=== PATIENT | female | born 1955 | race Caucasian/White ===

== ENCOUNTER 2016-03-26 09:49 | Day surgery (SDC) | payer BC ==
[2016-03-26] MEDS ORDERED: LACTATED RINGERS 1,000 ML IV ONE (10:00)
[2016-03-26] MEDS ORDERED: MIDAZOLAM 2 MG/2 ML VIAL IVP ONE (11:20)
[2016-03-26] MEDS ORDERED: fentaNYL 250 MCG/5 ML VIAL IVP ONE (11:20)
== END 2016-03-26 09:50 | disposition home or self-care (01) ==
PROC: 0DBN8ZZ Excision of Sigmoid Colon, Via Natural or Artificial Opening Endoscopic (ICD-10-PCS; 2016-03-26)
PROC: 0DBP8ZX Excision of Rectum, Via Natural or Artificial Opening Endoscopic, Diagnostic (ICD-10-PCS; 2016-03-26)
PROC: 0DBH8ZZ Excision of Cecum, Via Natural or Artificial Opening Endoscopic (ICD-10-PCS; principal; 2016-03-26 11:00)
DX: Z12.11 Encounter for screening for malignant neoplasm of colon (principal); D12.0 Benign neoplasm of cecum; D12.5 Benign neoplasm of sigmoid colon; K62.6 Ulcer of anus and rectum; K60.2 Anal fissure, unspecified
CPT/HCPCS: 45380; 45385; J7120

== ENCOUNTER 2016-04-02 16:40 | Outpatient (CLI) | payer BC | END 2016-04-02 16:41 | disposition home or self-care (01) | DX: N39.0 Urinary tract infection, site not specified (principal) ==

== ENCOUNTER 2016-04-13 09:50 | Outpatient (CLI) | payer BC | END 2016-04-13 09:51 | disposition home or self-care (01) | DX: N39.0 Urinary tract infection, site not specified (principal) ==

== ENCOUNTER 2016-07-12 09:20 | Outpatient (CLI) | payer BC | END 2016-07-12 09:21 | disposition home or self-care (01) | DX: N76.0 Acute vaginitis (principal) ==

== ENCOUNTER 2016-07-12 10:00 | Outpatient (CLI) | payer BC | END 2016-07-12 10:01 | disposition home or self-care (01) | LOC: LAB.R 10:00 | PROVIDERS: ATTEND Physician Assistant Medical | DX: R30.0 Dysuria (principal); N76.0 Acute vaginitis | CPT/HCPCS: 81599; 87077; 87086; 87480; 87510; 87660 ==

== ENCOUNTER 2016-08-06 08:00 | Outpatient (CLI) | payer BC | END 2016-08-06 23:59 | disposition home or self-care (01) | LOC: LAB.R 08:00 | PROVIDERS: ATTEND Family Medicine | DX: N39.0 Urinary tract infection, site not specified (principal) | CPT/HCPCS: 87077; 87086 ==

== ENCOUNTER 2016-10-23 10:11 | Outpatient (CLI) | payer BC ==
--- NOTE | 2016-10-24 14:38 | Mammography Report ---
DIGITAL SCREENING MAMMOGRAM: 10/23/2016 CLINICAL INDICATION: A 61-year-old nulliparous patient with personal history of right breast cancer, status post lumpectomy and radiation therapy, for screening. COMPARISON: 09/2015, 06/2015, 06/2014, 06/2013, 06/2012, 06/2011, 12/2010, 05/2010, 07/2009, 04/2009. TECHNIQUE: Routine CC and MLO projections were obtained of the breasts. FINDINGS: The breasts again demonstrate heterogeneously dense fibroglandular parenchyma bilaterally. Postoperative and posttreatment changes in the right upper central breast are stable. A few coarse, typically benign calcifications are present. No suspicious masses, clustered microcalcifications, or regions of architectural distortion are identified. IMPRESSION: BENIGN FINDINGS. RECOMMENDATION: ROUTINE ANNUAL SCREENING UNLESS OTHERWISE CLINICALLY INDICATED. BIRADS CATEGORY 2-BENIGN FINDINGS. STANDARD QUALIFYING STATEMENTS 1. This examination was reviewed with the aid of Computer-Aided Detection (CAD). 2. A negative or benign imaging report should not delay biopsy if clinically suspicious findings are present. Consider surgical consultation if warranted. More than 5% of cancers are not identified by i maging. 3. Dense breasts may obscure an underlying neoplasm. JOB #: [id number] EXT JOB #:[id number]
== END 2016-10-23 10:12 | disposition home or self-care (01) ==
LOC: DI.N 10:11
PROVIDERS: ATTEND Physician Assistant Medical
DX: Z12.31 Encounter for screening mammogram for malignant neoplasm of breast (principal); D05.90 Unspecified type of carcinoma in situ of unspecified breast
CPT/HCPCS: 77067

== ENCOUNTER 2017-01-30 00:17 | Inpatient (IN) | payer BC ==
[2017-01-30] MEDS ORDERED: ACETAMINOPHEN 325 MG TABLET PO STA (00:28)
[2017-01-30] MEDS ORDERED: SODIUM CHLORIDE 0.9% 1,000 ML IV ONE ×2 (00:28→02:54)
[2017-01-30] MEDS ORDERED: ACETAMINOPHEN 325 MG TABLET PO ONE (00:44)
[2017-01-30 00:59] LABS: BASOPHILS % (AUTO) 0.1 %; EOSINOPHILS % (AUTO) 0.2 %; HGB - HEMOGLOBIN 12.7 g/dL (12.0-16.0); LYMPHOCYTES # (AUTO) 0.3 10^3/uL (1.5-3.5); LYMPHOCYTES % (AUTO) 4.1 %; MEAN CORPUSCULAR HEMOGLOBIN 31.6 pg (27.0-31.0); MEAN CORPUSCULAR HGB CONC 34.5 g/dL (32.0-36.0); MEAN CORPUSCULAR VOLUME 91.8 fL (81.0-99.0); MEAN PLATELET VOLUME 7.9 fL (7.9-10.8); MONOCYTES # (AUTO) 0.2 10^3/uL (0.0-1.0); NEUTROPHILS # (AUTO) 6.6 10^3/uL (1.5-6.6); NEUTROPHILS % (AUTO) 92.6 %; PLT - PLATELET COUNT 98 10^3/uL (130-450); RED BLOOD COUNT 4.01 10^6/uL (4.20-5.40); WHITE BLOOD COUNT 7.1 x10^3/uL (4.8-10.8)
--- NOTE | 2017-01-30 01:02 | ED Physician Documentation ---
History of Present Illness - Stated complaint Stated Complaint: FEVER - Chief complaint Chief Complaint: Fever - History obtained from History obtained from: Patient, Family - History of Present Illness Timing: Yesterday - Additonal information Additional information: Patient is a 61 year old female with no significant past medical history who is presenting to the emergency department for fever and rash. According to patient and family over the last couple of days the patient has had fevers and shakes at night. During the day the patient states that she feels ok. patient states that she developed a new rash over the last couple of days. Patient denies any sick contacts but does state that they recently traveled to [place]. Patient states that she had a mild cough, but denied any other focal source or cause of her infection. Review of Systems Constitutional: reports: Fever, Chills, Sweats. denies: Fatigue, Weight Loss Eyes: denies: Decreased vision Ears: denies: Ear pain, Drainage/discharge Nose: denies: Rhinorrhea / runny nose, Congestion, Sinus pressure / pain Throat: denies: Sore throat Cardiac: denies: Chest pain / pressure, Palpitations Respiratory: reports: Cough. 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 HEENT: Cataracts - Present Medications Home Medications: Ambulatory Orders Medication Instructions Recorded Confirmed Calcium Citrate/Vitamin D3 1 each PO DAILY 03/26/16 01/30/17 [Calcium Citrate +Vit D3 Tablet] Cholecalciferol (Vitamin D3) 1 cap PO DAILY 03/26/16 01/30/17 [Vitamin D3] Divalproex Sodium [Depakote] 250 mg PO TID 03/26/16 01/30/17 Docusate Sodium 250Mg Capsule 250 mg PO PRN PRN 03/26/16 01/30/17 [Colace 250Mg Capsule] Levothyroxine [Synthroid] 100 mcg PO QDAC 03/26/16 01/30/17 Multivit with Calcium,Iron,Min 1 cap PO DAILY 03/26/16 01/30/17 [Multiple Vitamins For Women] Vit C/E/Zinc/Lutein/Zeaxanthin 500 cap PO DAILY 03/26/16 01/30/17 [Ocuvite Eye Health Gummies] Estrogens, Conjugated Cream 1 applic TOP QPM 01/30/17 01/30/17 [Premarin Cream] Fluticasone [Flonase] 1 spray TRAVIS DAILY PRN 01/30/17 01/30/17 Polyethylene Glycol 3350 [Miralax] 17 gm PO DAILY PRN 01/30/17 01/30/17 Psyllium Husk [Metamucil] 660 gm PO DAILY PRN 01/30/17 01/30/17 Zolpidem Tartrate [Ambien] 1 tab PO QPM PRN 01/30/17 01/30/17 hydrOXYzine pamoate [Hydroxyzine 1 - 2 cap PO QID PRN 01/30/17 01/30/17 Pamoate] lamoTRIgine [LaMICtal] 75 mg PO TID 01/30/17 01/30/17 - Allergies Allergies/Adverse Reactions: Allergies Allergy/AdvReac Type Severity Reaction Status Date / Time adhesive tape AdvReac Rash Verified 01/30/17 01:01 Sulfa (Sulfonamide AdvReac Anxiety Verified 01/30/17 01:01 Antibiotics) - Social History Does the pt smoke?: No Smoking Status: Never smoker Does the pt drink ETOH?: Yes Does the pt have substance abuse?: No - Immunizations Immunizations are current?: Yes - POLST Patient has POLST: No PD ED PE NORMAL - Vitals Vital signs reviewed: Yes - General General: Alert and oriented X 3 - HEENT HEENT: Atraumatic, PERRL, Pharynx benign - Neck Neck: Supple, no meningeal sign, No adenopathy - Abdomen Abdomen: Soft, Non tender, Non distended - Extremities Extremities: Normal ROM s pain, No edema, No calf tenderness / cord - Neuro Neuro: Alert and oriented X 3, No motor deficit, No sensory deficit, Normal speech Eye Opening: Spontaneous Motor: Obeys Commands Verbal: Oriented GCS Score: 15 - Psych Psych: Normal mood PD ED PE EXPANDED - HEENT HEENT: Dry mucous membranes - Cardiac Cardiac: Tachy - Derm Derm: Petecchiae (bilateral lower extremities) Results - Vitals Vitals: Vital Signs - 24 hr 01/30/17 01/30/17 01/30/17 00:21 00:50 01:17 Temperature 39.8 C H 38.6 C H 38.3 C H Heart Rate 120 H 115 H 123 H Respiratory 16 22 23 Rate Blood Pressure 139/56 H 126/65 107/60 O2 Saturation 97 98 96 01/30/17 02:24 Temperature 37.1 C Heart Rate 108 H Respiratory 22 Rate Blood Pressure 103/52 L O2 Saturation 97 Oxygen O2 Source Room air - Labs Labs: Laboratory Tests 01/30/17 01/30/17 01/30/17 00:45 00:45 00:45 WBC 7.1 RBC 4.01 L Hgb 12.7 Hct 36.8 L MCV 91.8 MCH 31.6 H MCHC 34.5 RDW 13.0 Plt Count 98 L MPV 7.9 Neut # 6.6 Lymph # 0.3 L Beaver # 0.2 Eos # 0.0 Baso # 0.0 Absolute Nucleated RBC 0.00 Nucleated RBC % 0.0 PT 12.1 INR 1.1 APTT 26.3 Sodium 137 Potassium 3.4 L Chloride 99 L Carbon Dioxide 28 Anion Gap 10.0 BUN 21 H Creatinine 1.0 Estimated GFR (MDRD) 56 L Glucose 125 H Lactic Acid Calcium 8.6 Total Bilirubin 0.6 AST 20 ALT 14 Alkaline Phosphatase 42 Total Protein 6.7 Albumin 3.5 Globulin 3.2 Albumin/Globulin Ratio 1.1 Lipase 20 L TSH Urine Color Urine Clarity Urine pH Ur Specific [place] Urine Protein Urine Glucose (UA) Urine Ketones Urine Occult Blood Urine Nitrite Urine Bilirubin Urine Urobilinogen Ur Leukocyte Esterase Urine RBC Urine WBC Ur Squamous Epith Cells Urine Bacteria Ur Microscopic Review Urine Culture Comments Influenza A (Rapid) Influenza B (Rapid) Influenza Types A,B Ag 01/30/17 01/30/17 01/30/17 00:45 00:45 00:45 WBC RBC Hgb Hct MCV MCH MCHC RDW Plt Count MPV Neut # Lymph # [place] # Eos # Baso # Absolute Nucleated RBC Nucleated RBC % PT INR APTT Sodium Potassium Chloride Carbon Dioxide Anion Gap BUN Creatinine Estimated GFR (MDRD) Glucose Lactic Acid 0.6 Calcium Total Bilirubin AST ALT Alkaline Phosphatase Total Protein Albumin Globulin Albumin/Globulin Ratio Lipase TSH 0.16 L Urine Color Urine Clarity Urine pH Ur Specific [place] Urine Protein Urine Glucose (UA) Urine Ketones Urine Occult Blood Urine Nitrite Urine Bilirubin Urine Urobilinogen Ur Leukocyte Esterase Urine RBC Urine WBC Ur Squamous Epith Cells Urine Bacteria Ur Microscopic Review Urine Culture Comments Influenza A (Rapid) Negative Influenza B (Rapid) Negative Influenza Types A,B Ag - 01/30/17 01:27 WBC RBC Hgb Hct MCV MCH MCHC RDW Plt Count MPV Neut # Lymph # [place] # Eos # Baso # Absolute Nucleated RBC Nucleated RBC % PT INR APTT Sodium Potassium Chloride Carbon Dioxide Anion Gap BUN Creatinine Estimated GFR (MDRD) Glucose Lactic Acid Calcium Total Bilirubin AST ALT Alkaline Phosphatase Total Protein Albumin Globulin Albumin/Globulin Ratio Lipase TSH Urine Color YELLOW Urine Clarity HAZY Urine pH 7.5 Ur Specific [place] 1.015 Urine Protein 30 H Urine Glucose (UA) NEGATIVE Urine Ketones NEGATIVE Urine Occult Blood MODERATE H Urine Nitrite NEGATIVE Urine Bilirubin NEGATIVE Urine Urobilinogen 0.2 (NORMAL) Ur Leukocyte Esterase SMALL H Urine RBC 11-25 H Urine WBC 6-10 H Ur Squamous Epith Cells RARE Squamous Urine Bacteria Rare Ur Microscopic Review INDICATED Urine Culture Comments INDICATED Influenza A (Rapid) Influenza B (Rapid) Influenza Types A,B Ag - Rads (name of study) chest Radiology: Final report received (normal chest x=ray) PD MEDICAL DECISION MAKING - ED course Complexity details: reviewed old records, reviewed results, re-evaluated patient , considered differential, d/w patient, d/w family, 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 IV access was gained and labs were drawn. Patient was treated with fluid bolus and tylenol. blood cultures were drawn. Patient's fever responded well to the tylenol and IV fluids. the tachycardia improved. When patient's labs came back she was found to have platelets of 98. patient's only other labs were from 2016 and her platelets at that time were normal at 177. Due to the positive SIRS, low platelets and petechiae it was decided to admit the patient. the case was discussed with the hospitalist who agreed and the patient was admitted for further evaluation and care. Departure - Departure Disposition: ED Place in Observation Clinical Impression: Fever, Thrombocytopenia Condition: Stable
[2017-01-30 01:07] LABS: INR 1.1 (0.8-1.2); PT - PROTHROMBIN TIME 12.1 secs (9.9-12.6)
[2017-01-30 01:09] LABS: ALBUMIN 3.5 g/dL (3.2-5.5); ALBUMIN/GLOBULIN RATIO 1.1 (1.0-2.2); BILIRUBIN,TOTAL 0.6 mg/dL (0.2-1.0); CALCIUM 8.6 mg/dL (8.5-10.3); TOTAL PROTEIN 6.7 g/dL (6.7-8.2)
[2017-01-30 01:37] LABS: BILIRUBIN,URINE NEGATIVE (NEGATIVE); GLUCOSE, URINE (UA) NEGATIVE (NEGATIVE); KETONES,URINE (UA) NEGATIVE (NEGATIVE); LEUKOCYTE ESTERASE, URINE SMALL (NEGATIVE); NITRITE,URINE NEGATIVE (NEGATIVE); OCCULT BLOOD,URINE MODERATE (NEGATIVE); PH,URINE 7.5 PH (5.0-7.5); PROTEIN,URINE 30 mg/dL (NEGATIVE); UROBILINOGEN,URINE 0.2 (NORMAL) E.U./dL (NORMAL)
[2017-01-30 01:57] LABS: CLARITY,URINE HAZY (CLEAR)
[2017-01-30 01:58] LABS: BACTERIA,URINE Rare /HPF (None Seen); SQUAMOUS EPITHELIAL CELL,UR RARE Squamous (<= Few)
--- NOTE | 2017-01-30 02:03 | XRAY Preliminary Report ---
Exam: XR CHEST 1 VIEW IMPRESSION: 1. No acute abnormality seen in the chest. [facility] SITE ID: [id number]
--- NOTE | 2017-01-30 02:05 | XRAY Report ---
EXAM: CHEST RADIOGRAPHY EXAM DATE: 01/30/2017 01:36 AM. CLINICAL HISTORY: Fever, sepsis. COMPARISON: None. TECHNIQUE: 1 view. FINDINGS: Lungs/Pleura: No alveolar consolidation or pleural effusion seen. No pneumothorax. Mediastinum: Within exam limitations, the cardiomediastinal contour is normal. Other: None. IMPRESSION: 1. No acute abnormality seen in the chest. [facility] Referring Provider Line: [phone] SITE ID: [id number]
[2017-01-30] MEDS ORDERED: IOPAMIDOL-300 100 ML VIAL ONE (02:45)
--- NOTE | 2017-01-30 02:58 | HISTORY & PHYSICAL EXAMINATION ---
Chief Complaint - Chief Complaint Chief Complaint: rash to legs, fevers, chills History of Present Illness - Admitted From Admitted From:: ED - History Obtained From Records Reviewed: yes History obtained from: patient Exam Limitations: none - History of Present Illness HPI Comment/Other: This is a pleasant 61 y/o with PMHx of colon polyps, breast CA in situ in 2009 on lamictal by psychiatry, hyperthyroidism was in [place] approximately a week as a subsequently developed a MP rash with "pin-point" lesion scattered throughout lower extremities. Patient also notes fevers, and was tachycardic in ED. Denies nausea, emesis, /GI symptoms, no chest pain, SOB, cough, Flu swab, UA and LA were unremarkable in ED. CXR did show some mediastinal abnormality secondary to rotation? Unclear. Platelets were low at 98K wit no bleeding, and INR 1.1, cr 1.0. WBC normal. After receiving 1 liter fluid bolus and tylenol fever improved and rachy went from 120>108 in ED. Patient was told by Psychiatrist of potential side effects of Lamictal to include MP rash secondary to sun exposure when taking Lamictal. History - Past Medical History Cardiovascular: denies: Congestive heart failure, Hypertension, Coronary artery disease, Atrial flutter, Atrial fibrillation Respiratory: reports: None. denies: Asthma, COPD, Emphysema, Pneumonia Neuro: reports: None Endocrine/Autoimmune: reports: None, HyPOthyroidism GI: reports: Colon polyps. 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 Cardiovascular: denies: CABG, Coronary stent, Valve replacement, Pacemaker, AICD , Cardiac catheterization HEENT: reports: Cataracts - Family & Social History Family History: Other family: CAD (denies ), Cancer (denies), CVA/TIA (denies) - POLST Patient has POLST: No Meds/Allgy - Home Medications Home Medications: Ambulatory Orders Medication Instructions Recorded Confirmed Calcium Citrate/Vitamin D3 1 each PO DAILY 03/26/16 01/30/17 [Calcium Citrate +Vit D3 Tablet] Cholecalciferol (Vitamin D3) 1 cap PO DAILY 03/26/16 01/30/17 [Vitamin D3] Divalproex Sodium [Depakote] 250 mg PO TID 03/26/16 01/30/17 Docusate Sodium 250Mg Capsule 250 mg PO PRN PRN 03/26/16 01/30/17 [Colace 250Mg Capsule] Levothyroxine [Synthroid] 100 mcg PO QDAC 03/26/16 01/30/17 Multivit with Calcium,Iron,Min 1 cap PO DAILY 03/26/16 01/30/17 [Multiple Vitamins For Women] Vit C/E/Zinc/Lutein/Zeaxanthin 500 cap PO DAILY 03/26/16 01/30/17 [[facility]] Estrogens, Conjugated Cream 1 applic TOP QPM 01/30/17 01/30/17 [Premarin Cream] Fluticasone [Flonase] 1 spray TRAVIS DAILY PRN 01/30/17 01/30/17 Polyethylene Glycol 3350 [Miralax] 17 gm PO DAILY PRN 01/30/17 01/30/17 Psyllium Husk [Metamucil] 660 gm PO DAILY PRN 01/30/17 01/30/17 Zolpidem Tartrate [Ambien] 1 tab PO QPM PRN 01/30/17 01/30/17 hydrOXYzine pamoate [Hydroxyzine 1 - 2 cap PO QID PRN 01/30/17 01/30/17 Pamoate] lamoTRIgine [LaMICtal] 75 mg PO TID 01/30/17 01/30/17 - Allergies Allergies/Adverse Reactions: Allergies Allergy/AdvReac Type Severity Reaction Status Date / Time adhesive tape AdvReac Rash Verified 01/30/17 01:01 Sulfa (Sulfonamide AdvReac Anxiety Verified 01/30/17 01:01 Antibiotics) Review of Systems - Constitutional Constitutional: reports: Fever, Chills. denies: Fatigue, Malaise, Weakness, Poor appetite, Night sweats, Weight gain - Eyes Eyes: denies: Pain - Ears, Nose & Throat Ears, Nose & Throat: denies: Vertigo - Cardiovascular Cariovascular: denies: Irregular heart rate, Palpitations, Syncope - Respiratory Respiratory: denies: Cough, Sputum production, Hemoptysis - Gastrointestinal Gastrointestinal: denies: Abdominal pain, Rectal bleeding, Black stools, Bloody stools, Reflux/heartburn - Genitourinary Genitourinary: denies: Dysuria - Musculoskeletal Musculoskeletal: denies: Muscle pain, Muscle aches - Integumentary Integumentary: reports: Rash, Lesions. denies: Pruritis - Neurological Neurological: denies: General weakness - Psychiatric Psychiatric: denies: Hallucinations - Endocrine Endocrine: denies: Polyuria - Hematologic/Lymphatic Hematologic/Lymphatic: reports: Petechiae. denies: Blood clots, Lymphadenopathy , Bleeding tendencies, Recurrent infections Exam - Vital Signs Vital Signs: Vital Signs x48h Temp Pulse Resp BP Pulse Ox 01/30/17 02:24 37.1 C 108 H 22 103/52 L 97 01/30/17 01:17 38.3 C H 123 H 23 107/60 96 01/30/17 00:50 38.6 C H 115 H 22 126/65 98 01/30/17 00:21 39.8 C H 120 H 16 139/56 H 97 - Physical Exam General Appearance: positive: No acute distress Eyes Bilateral: positive: Normal inspection, PERRL, EOMI ENT: negative: Pharyngeal erythema, Oral lesions Neck: positive: Nml inspection, Thyroid nml, No JVD, Trachea midline. negative : Thyromegaly, Lymphadenopathy (R), Lymphadenopathy (L) Respiratory: positive: Chest non-tender, No respiratory distress Cardiovascular: positive: Regular rate & rhythm, No murmur, No gallop. negative : Irregularly irregular, Systolic murmur, Gallop/S4 Peripheral Pulses: positive: 2+ Abdomen: positive: Non-tender, No organomegaly, Nml bowel sounds, No distention Back: negative: CVA tenderness (R), CVA tenderness (L) Skin: positive: Skin rash (petechial rash scattered throughout lower extremities with no bullae, blisters, necrotic lesions) Extremities: negative: Non-tender, No pedal edema, Calf tenderness Neurologic/Psychiatric: positive: Oriented x3 Conclusion/Plan - Problem List (1) Hyperthyroidism Conclusion/Plan: patient with hx hypothyroidism. Would obtain a free t3/t4. Would clarify dosing on levothyroxine. Subclinical hyperthyroidism maybe contributing with her tachy and fevers? DDx: Uma's or viral thyroditis (2) Petechial rash Conclusion/Plan: Unclear of etiology however would query on an infectious source vs malignancy or iatrogenic i.e lamotrigine with sun exposure cause as the timeline does fit with patient in sun-exposed [place] during the time of symptoms. Fevers and other side effects such as thrombocytopenia may explain this as well. Would hold Lamictal for now. Obtain a peripheral smear, EBV IgM, Monospot, HIV ( unlikely) follow blood cultures to r/o bacteremia, flu was negative as well as LA level and UA. Consider bone marrow biopsy as definitive diagnostic if other labs or imaging are unequivocal. (3) SIRS (systemic inflammatory response syndrome) Conclusion/Plan: Secondary to infectious vs iatrogenic cause i.e Lamotrigine side effect. Obtain a Lamotrigine level. CT chest w/ and w/o IV contrast to eval for abnormal mediastianal shadowing on CXR. Infectious work up. Metabolic work up. (4) Tachycardia Conclusion/Plan: IVF's, sec to infectious vs iatrogenic source. Treat supportively. (5) Fever Conclusion/Plan: Tylenol prn. Blood cultures to follow. Qualifiers: Fever type: drug-induced Qualified Code(s): R50.2 - Drug induced fever (6) Thrombocytopenia Conclusion/Plan: Likely secondary to Lamotrigine vs and infectious source. See above for plan on SIRS. Would follow platelet trending. Avoid heparin, ASA for now. Lamotrigine level to follow. - Lab Results Fish Bones: 01/30/17 00:45 01/30/17 00:45 - Diagnostic Imaging Results Diagnostic Imaging Results: positive: Final report reviewed, Read independently - EKG Results EKG Interpreted Independently: Yes - Other Other Results/Comments: DVT/GI ppx Place on SCD's and h2 nga. Issues/Core Measures - Anticipated LOS Anticipated Stay Length: 2 or more midnights - DVT/VTE - Prophylaxis VTE/DVT Device ordered at admit?: Yes VTE/DVT Prophylaxis med ordered at admit?: No Not Ordered - Medical Reason: Contraindicated - Stroke - Rehab Assessment Rehab services assessment to be ordered?: No - AMI - Statin at Admit Aspirin Prescribed on Admit: No Not Ordered - Medical Reason: Complication (thrombocytopenia)
[2017-01-30] MEDS ORDERED: IOPAMIDOL-300 100 ML VIAL IVP ONE ×2 (03:11→03:19)
[2017-01-30] MEDS ORDERED: ZOLPIDEM 5 MG TABLET PO PRN (03:18)
[2017-01-30] MEDS ORDERED: ONDANSETRON ODT 4 MG TABLET TL PRN (03:18)
[2017-01-30] MEDS ORDERED: HYDROcod/ACETAM 5/325 MG TABLET PO PRN (03:18)
[2017-01-30] MEDS ORDERED: ACETAMINOPHEN 325 MG TABLET PO PRN (03:18)
--- NOTE | 2017-01-30 03:32 | CT Preliminary Report ---
Exam: CT CHEST W/ IMPRESSION: 1. No acute abnormality seen in the chest. 2. Heterogeneous decreased enhancement in the visualized portion of the right kidney with perinephric stranding. Correlate for the possibility of pyelonephritis. [facility] SITE ID: [id number]
--- NOTE | 2017-01-30 03:34 | CT Report ---
EXAM: CT CHEST EXAM DATE: 01/30/2017 03:20 AM. CLINICAL HISTORY: Fever. Breast cancer. COMPARISONS: None. TECHNIQUE: Routine helical CT imaging was performed through the chest. IV contrast: Nonionic. Reconst ructions: Coronal and sagittal. In accordance with CT protocol optimization, one or more of the following dose reduction techniques w ere utilized for this exam: automated exposure control, adjustment of mA and/or KV based on patient s ize, or use of iterative reconstructive technique. FINDINGS: Lungs/Pleura: Mild bibasilar atelectasis. Probable mild radiation fibrosis in the right upper lobe. N o yusuf alveolar consolidation seen. No pleural effusion. No pneumothorax. Mediastinum: Heart size is normal. No lymphadenopathy. Bones: Degenerative changes in the spine. Mild scoliosis. No aggressive lytic or blastic lesions iden tified. Visualized Abdomen: Fatty liver. Visualized portion of the right kidney shows heterogeneous enhanceme nt with perinephric stranding, possibly due to pyelonephritis. Other: Postoperative changes in the right breast. IMPRESSION: 1. No acute abnormality seen in the chest. 2. Heterogeneous decreased enhancement in the visualized portion of the right kidney with perinephric stranding. Correlate for the possibility of pyelonephritis. [facility] Referring Provider Line: [phone] SITE ID: [id number]
[2017-01-30] MEDS ORDERED: LACTATED RINGERS 1,000 ML IV SCH (04:00)
[2017-01-30] MEDS: cefTRIAXone 1 GM in SODIUM CHLORIDE 0.9% MINIBAG 100 ML IV SCH (05:33)
[2017-01-30] MEDS: SODIUM CHLORIDE FLUSH 0.9% 10 ML SYRINGE IVP SCH ×3 (05:34→20:13)
[2017-01-30] MEDS: SODIUM CHLORIDE FLUSH 0.9% 10 ML SYRINGE IVP PRN (06:21)
[2017-01-30] MEDS: LACTATED RINGERS 1,000 ML IV SCH ×3 (08:09→20:12)
[2017-01-30] MEDS ORDERED: POLYETHYLENE GLYCOL 3350 17 GM PACKET PO SCH (09:00)
[2017-01-30] MEDS: FAMOTIDINE 20 MG TABLET PO SCH (09:16)
--- NOTE | 2017-01-30 16:13 | PROVIDER PROGRESS NOTE ---
Hospitalist Cross-cover Note - Cross-Cover Note Cross-Cover Note: The patient reports having a normal plt count of 151 just 1 mo ago. I have called Pt's psychiatrist Dr Padmini Hoffmann and left a message, to discuss the combination meds of Depakote and Lamictal and her thrombocytopenia. Her Synthroid will be restarted tomorrow at a lower dose. This afternoon Pt's blood cultures both became pos for GN Bacteria. I will move the Pt to inpatient status for bacteremia treatment. The patient was updated with the plan.
[2017-01-31] MEDS: LACTATED RINGERS 1,000 ML IV SCH ×4 (02:34→23:54)
[2017-01-31] MEDS: SODIUM CHLORIDE FLUSH 0.9% 10 ML SYRINGE IVP SCH ×3 (05:17→20:56)
[2017-01-31 06:01] LABS: BASOPHILS % (AUTO) 0.3 %; EOSINOPHILS % (AUTO) 0.1 %; HGB - HEMOGLOBIN 10.1 g/dL (12.0-16.0); LYMPHOCYTES # (AUTO) 0.5 10^3/uL (1.5-3.5); LYMPHOCYTES % (AUTO) 6.5 %; MEAN CORPUSCULAR HEMOGLOBIN 31.1 pg (27.0-31.0); MEAN CORPUSCULAR HGB CONC 33.4 g/dL (32.0-36.0); MEAN CORPUSCULAR VOLUME 93.3 fL (81.0-99.0); MEAN PLATELET VOLUME 8.4 fL (7.9-10.8); MONOCYTES # (AUTO) 0.5 10^3/uL (0.0-1.0); MONOCYTES % (AUTO) 6.9 %; NEUTROPHILS # (AUTO) 6.1 10^3/uL (1.5-6.6); NEUTROPHILS % (AUTO) 86.2 %; PLT - PLATELET COUNT 82 10^3/uL (130-450); RED BLOOD COUNT 3.25 10^6/uL (4.20-5.40); WHITE BLOOD COUNT 7.1 x10^3/uL (4.8-10.8)
[2017-01-31 06:13] LABS: CALCIUM 7.8 mg/dL (8.5-10.3); CREATININE 0.9 mg/dL (0.4-1.0)
[2017-01-31] MEDS: LEVOTHYROXINE 75 MCG TABLET PO SCH (06:37)
[2017-01-31] MEDS: lamoTRIgine 25 MG TABLET PO SCH ×2 (07:51→09:53)
[2017-01-31] MEDS: FAMOTIDINE 20 MG TABLET PO SCH (09:25)
[2017-01-31] MEDS: cefTRIAXone 1 GM in SODIUM CHLORIDE 0.9% MINIBAG 100 ML IV SCH (09:55)
[2017-01-31] MEDS: SODIUM CHLORIDE FLUSH 0.9% 10 ML SYRINGE IVP PRN (10:39)
[2017-01-31] MEDS ORDERED: ACETAMINOPHEN 325 MG TABLET PO PRN (16:40)
--- NOTE | 2017-01-31 20:19 | PROVIDER PROGRESS NOTE ---
Assessment/Plan - Problem List (1) Sepsis due to urinary tract infection Assessment/Plan: Continue iv antibiotics as she is still febrile. Will order imaging to evaluate for cause of pyelonephritis and Hx of frequent UTIs. (2) Thrombocytopenia Assessment/Plan: Remain off Depakote (bone marrow suppression when Lamictal added) and follow CBC. Discussed management with her psychiatrist, Dr Mik Hoffmann. (3) Petechial rash Assessment/Plan: No worsening of rash on lower legs. (4) Bipolar 1 disorder Assessment/Plan: Meds adjusted after phone call discussion with her psychiatrist. - Current Meds Current Meds: Current Medications Generic Name Dose Route Start Last Admin Trade Name Freq PRN Reason Stop Dose Admin Acetaminophen 650 mg 01/31/17 16:40 01/31/17 16:56 Tylenol PO 650 mg Q4HR PRN Administration Pain 1 to 4 Famotidine 20 mg 01/30/17 09:00 01/31/17 09:25 Pepcid PO 20 mg DAILY YURI Administration Ceftriaxone Sodium 1 gm/ 100 mls @ 200 mls/hr 01/30/17 05:00 01/31/17 10:36 Sodium Chloride IV Infused DAILY YURI Infusion Lactated Ringer's 1,000 mls @ 150 mls/hr 01/30/17 07:00 01/31/17 17:34 Lr IV 150 mls/hr .Q6H40M YURI Administration Lamotrigine 75 mg 01/31/17 09:00 01/31/17 09:53 Lamictal PO 75 mg DAILY YURI Administration Levothyroxine Sodium 75 mcg 01/31/17 07:00 01/31/17 06:37 Synthroid PO 75 mcg QDAC YURI Administration Sodium Chloride 10 ml 01/30/17 03:18 01/31/17 10:39 Normal Saline Flush 0.9% IVP 10 ml PRN PRN Administration NEEDED PER PROVIDER ORDERS Sodium Chloride 10 ml 01/30/17 06:00 01/31/17 12:01 Normal Saline Flush 0.9% IVP 10 ml Q8HR YURI Administration - Lab Result Fish Bone Diagrams: 02/01/17 08:10 01/31/17 05:07 - Additional Planning My Orders: My Active Orders 01/31/17 09:00 lamoTRIgine [LaMICtal] 75 mg PO DAILY 01/31/17 16:40 Acetaminophen [Tylenol] 650 mg PO Q4HR PRN 02/01/17 09:00 Abdomen/Pelvis W/WO [CT] Routine Subjective - Subjective Patient Reports: Feeling Better Nursing Reports: Other (Ambulating in hallway) Objective Vital Signs: Vital Signs - 24 hr 01/30/17 01/30/17 01/31/17 20:21 20:50 00:08 Temperature 38.2 C H 37.7 C H Heart Rate [ 82 Brachial] Respiratory 16 Rate Blood Pressure [Left Brachial artery] Blood Pressure 98/45 L 100/44 L [Right Brachial artery] O2 Saturation 95 01/31/17 01/31/17 01/31/17 05:00 06:39 09:00 Temperature 38.2 C H 37.3 C 36.8 C Heart Rate [ 85 83 Brachial] Respiratory 16 18 Rate Blood Pressure 100/41 L [Left Brachial artery] Blood Pressure 94/49 L [Right Brachial artery] O2 Saturation 94 94 01/31/17 01/31/17 01/31/17 12:00 15:32 16:56 Temperature 36.7 C 37.7 C H 38 C H Heart Rate [ 95 82 Brachial] Respiratory 18 20 Rate Blood Pressure 102/51 L 114/42 L [Left Brachial artery] Blood Pressure [Right Brachial artery] O2 Saturation 97 94 01/31/17 01/31/17 18:40 20:11 Temperature 36.9 C 36.7 C Heart Rate [ 78 Brachial] Respiratory 20 Rate Blood Pressure 105/41 L [Left Brachial artery] Blood Pressure [Right Brachial artery] O2 Saturation 93 Oxygen O2 Source Room air I&O (Last 24 Hrs): Intake and Output Totals x24h 01/29/17 01/30/17 01/31/17 23:59 23:59 23:59 Intake Total 2298.333 4005 Balance 2298.333 4005 General: Alert HEENT: Mucous membr. moist/pink Neck: Supple Neuro: Oriented Times 3 Cardiovascular: Regular rate, No murmurs Respiratory: No respiratory distress Abdomen: Soft Extremities: Other (Unchaged peticial rash of both lower legs, on lateral aspect of shins.) - Results Results: Laboratory Results WBC 7.1 x10^3/uL (4.8-10.8) 01/31/17 05:07 RBC 3.25 10^6/uL (4.20-5.40) L 01/31/17 05:07 Hgb 10.1 g/dL (12.0-16.0) L 01/31/17 05:07 Hct 30.4 % (37.0-47.0) L 01/31/17 05:07 MCV 93.3 fL (81.0-99.0) 01/31/17 05:07 MCH 31.1 pg (27.0-31.0) H 01/31/17 05:07 MCHC 33.4 g/dL (32.0-36.0) 01/31/17 05:07 RDW 13.0 % (12.0-15.0) 01/31/17 05:07 Plt Count 82 10^3/uL (130-450) L 01/31/17 05:07 MPV 8.4 fL (7.9-10.8) 01/31/17 05:07 Neut # 6.1 10^3/uL (1.5-6.6) 01/31/17 05:07 Lymph # 0.5 10^3/uL (1.5-3.5) L 01/31/17 05:07 [place] # 0.5 10^3/uL (0.0-1.0) 01/31/17 05:07 Eos # 0.0 10^3/uL (0.0-0.7) 01/31/17 05:07 Baso # 0.0 10^3/uL (0.0-0.1) 01/31/17 05:07 Absolute Nucleated RBC 0.00 x10^3/uL 01/31/17 05:07 Nucleated RBC % 0.0 /100WBC 01/31/17 05:07 PT 12.1 secs (9.9-12.6) 01/30/17 00:45 INR 1.1 (0.8-1.2) 01/30/17 00:45 APTT 26.3 secs (24.9-33.3) 01/30/17 00:45 Sodium 137 mmol/L (135-145) 01/31/17 05:07 Potassium 3.4 mmol/L (3.5-5.0) L 01/31/17 05:07 Chloride 105 mmol/L (101-111) 01/31/17 05:07 Carbon Dioxide 25 mmol/L (21-32) 01/31/17 05:07 Anion Gap 7.0 (6-13) 01/31/17 05:07 BUN 12 mg/dL (6-20) 01/31/17 05:07 Creatinine 0.9 mg/dL (0.4-1.0) 01/31/17 05:07 Estimated GFR (MDRD) 63 (>89) L 01/31/17 05:07 Glucose 118 mg/dL (70-100) H 01/31/17 05:07 Lactic Acid 0.6 mmol/L (0.5-2.2) 01/30/17 00:45 Calcium 7.8 mg/dL (8.5-10.3) L 01/31/17 05:07 Total Bilirubin 0.6 mg/dL (0.2-1.0) 01/30/17 00:45 AST 20 IU/L (10-42) 01/30/17 00:45 ALT 14 IU/L (10-60) 01/30/17 00:45 Alkaline Phosphatase 42 IU/L (42-121) 01/30/17 00:45 Total Protein 6.7 g/dL (6.7-8.2) 01/30/17 00:45 Albumin 3.5 g/dL (3.2-5.5) 01/30/17 00:45 Globulin 3.2 g/dL (2.1-4.2) 01/30/17 00:45 Albumin/Globulin Ratio 1.1 (1.0-2.2) 01/30/17 00:45 Lipase 20 U/L (22-51) L 01/30/17 00:45 TSH 0.16 uIU/mL (0.34-5.60) L 01/30/17 00:45 Free T4 1.02 ng/dL (0.58-1.64) 01/30/17 00:45 Free T3 pg/mL 3.12 pg/mL (2.5-3.9) 01/30/17 00:45 Urine Color YELLOW 01/30/17 01:27 Urine Clarity HAZY (CLEAR) 01/30/17 01:27 Urine pH 7.5 PH (5.0-7.5) 01/30/17 01:27 Ur Specific [place] 1.015 (1.002-1.030) 01/30/17 01:27 Urine Protein 30 mg/dL (NEGATIVE) H 01/30/17 01:27 Urine Glucose (UA) NEGATIVE mg/dL (NEGATIVE) 01/30/17 01:27 Urine Ketones NEGATIVE mg/dL (NEGATIVE) 01/30/17 01:27 Urine Occult Blood MODERATE (NEGATIVE) H 01/30/17 01:27 Urine Nitrite NEGATIVE (NEGATIVE) 01/30/17 01:27 Urine Bilirubin NEGATIVE (NEGATIVE) 01/30/17 01:27 Urine Urobilinogen 0.2 (NORMAL) E.U./dL (NORMAL) 01/30/17 01:27 Ur Leukocyte Esterase SMALL (NEGATIVE) H 01/30/17 01:27 Urine RBC 11-25 /HPF (0-5) H 01/30/17 01:27 Urine WBC 6-10 /HPF (0-5) H 01/30/17 01:27 Ur Squamous Epith Cells RARE Squamous (<= Few) 01/30/17 01:27 Urine Bacteria Rare /HPF (None Seen) 01/30/17 01:27 Ur Microscopic Review INDICATED 01/30/17 01:27 Urine Culture Comments INDICATED 01/30/17 01:27 Infectious [place] Assay NEGATIVE (Negative) 01/30/17 00:45 Influenza A (Rapid) Negative (Negative) 01/30/17 00:45 Influenza B (Rapid) Negative (Negative) 01/30/17 00:45 Influenza Types A,B Ag - 01/30/17 00:45 - Procedures Procedures: Procedures EXCISION OF CECUM, ENDO (03/26/16) EXCISION OF RECTUM, ENDO, DIAGN (03/26/16) EXCISION OF SIGMOID COLON, ENDO (03/26/16)
[2017-02-01] MEDS: SODIUM CHLORIDE FLUSH 0.9% 10 ML SYRINGE IVP SCH ×3 (05:17→21:04)
[2017-02-01] MEDS: LACTATED RINGERS 1,000 ML IV SCH (05:56)
[2017-02-01] MEDS: LEVOTHYROXINE 75 MCG TABLET PO SCH (05:56)
[2017-02-01] MEDS ORDERED: IOPAMIDOL-300 100 ML VIAL ONE (08:30)
[2017-02-01] MEDS ORDERED: IOPAMIDOL-300 50 ML VIAL ONE (08:30)
[2017-02-01 08:32] LABS: BASOPHILS % (AUTO) 0.4 %; EOSINOPHILS % (AUTO) 0.3 %; HGB - HEMOGLOBIN 10.5 g/dL (12.0-16.0); LYMPHOCYTES # (AUTO) 0.5 10^3/uL (1.5-3.5); LYMPHOCYTES % (AUTO) 10.7 %; MEAN CORPUSCULAR HEMOGLOBIN 31.6 pg (27.0-31.0); MEAN CORPUSCULAR HGB CONC 34.8 g/dL (32.0-36.0); MEAN CORPUSCULAR VOLUME 90.7 fL (81.0-99.0); MEAN PLATELET VOLUME 8.7 fL (7.9-10.8); MONOCYTES # (AUTO) 0.4 10^3/uL (0.0-1.0); MONOCYTES % (AUTO) 7.7 %; NEUTROPHILS # (AUTO) 3.9 10^3/uL (1.5-6.6); NEUTROPHILS % (AUTO) 80.9 %; PLT - PLATELET COUNT 103 10^3/uL (130-450); RED BLOOD COUNT 3.32 10^6/uL (4.20-5.40); RED CELL DISTRIBUTION WIDTH 12.8 % (12.0-15.0); WHITE BLOOD COUNT 4.8 x10^3/uL (4.8-10.8)
[2017-02-01] MEDS ORDERED: IOPAMIDOL-300 50 ML VIAL PO ONE (10:18)
[2017-02-01] MEDS ORDERED: IOPAMIDOL-300 100 ML VIAL IVP ONE (10:18)
[2017-02-01] MEDS: cefTRIAXone 1 GM in SODIUM CHLORIDE 0.9% MINIBAG 100 ML IV SCH (11:00)
[2017-02-01] MEDS: FAMOTIDINE 20 MG TABLET PO SCH (11:01)
[2017-02-01] MEDS: lamoTRIgine 25 MG TABLET PO SCH (11:01)
--- NOTE | 2017-02-01 11:35 | CT Preliminary Report ---
Exam: CT ABDOMEN/PELVIS W/WO IMPRESSION: 1. Consistent with multifocal right pyelonephritis. No hydronephrosis, stones, mass, or renal abscess . 2. Unremarkable left kidney. 3. Nonspecific modest dependent pelvic free fluid without enhancing margins. 4. Interval moderate right and small left pleural effusions and right greater than left bibasilar ate lectasis/infiltrates and/or edema. 5. Interval diffuse gallbladder thickening/edema. Differential includes passive gallbladder edema and acalculous cholecystitis. Correlate clinically. [facility] SITE ID: [id number]
--- NOTE | 2017-02-01 11:38 | CT Report ---
EXAM: CT ABDOMEN AND PELVIS WITHOUT AND WITH CONTRAST EXAM DATE: 02/01/2017 11:08 AM. CLINICAL HISTORY: Urosepsis, Hx of frequent UTIs. COMPARISONS: Chest CT 01/30/2017. TECHNIQUE: [address] of the abdomen and pelvis before and after the uncomplicated IV contrast ad ministration. IV Contrast: 100 cc Isovue-300. Oral contrast: Yes. Reconstructions: Coronal and sagitt al. In accordance with CT protocol optimization, one or more of the following dose reduction techniques w ere utilized for this exam: automated exposure control, adjustment of mA and/or KV based on patient s ize, or use of iterative reconstructive technique. FINDINGS: Lung Bases: Interval moderate right and small left pleural effusions. Irregular bibasilar parenchymal opacities, right greater than left, compatible with atelectasis/infiltrates and/or edema. No cardiom egaly. Right Kidney/Ureter: No hydronephrosis, hydroureter, or stones. Multifocal patchy areas of diminished renal parenchymal enhancement in upper, mid, and inferior poles, consistent with multifocal pyelonep hritis. No discrete mass or abscess. No suspicious filling defects in the opacified collecting system and ureter. Mild diffuse renal swelling and mild perinephric fat stranding. No perinephric fluid. Left Kidney/Ureter: No hydronephrosis, hydroureter, or stones. Normal parenchymal enhancement without focal lesion. Other abdominal Fat Organs: The liver, spleen, pancreas, gallbladder, and adrenal glands are unremark able.Nonspecific diffuse gallbladder edema and mucosal enhancement. No calcified gallstone or ductal dilatation. Peritoneal Cavity/Bowel: No dilatation or acute findings of the partially opacified bowel. Normal rowdy endix. Small dependent pelvic free fluid, without enhancing margins. No adenopathy by CT size criteri a. Pelvic Organs: No bladder stones, wall thickening, or focal lesion. Hysterectomy. No adnexal mass or cyst. No adenopathy. Nonspecific mild presacral edema. Vasculature: Calcified aortic plaques. No aneurysm. Bones: Mild scoliosis. Degenerative changes of the spine, most advanced at the lumbosacral junction. No aggressive bone destructive process. IMPRESSION: 1. Consistent with multifocal right pyelonephritis. No hydronephrosis, stones, mass, or renal abscess . 2. Unremarkable left kidney. 3. Nonspecific modest dependent pelvic free fluid without enhancing margins. 4. Interval moderate right and small left pleural effusions and right greater than left bibasilar ate lectasis/infiltrates and/or edema. 5. Interval diffuse gallbladder thickening/edema. Differential includes passive gallbladder edema and acalculous cholecystitis. Correlate clinically. [facility] Referring Provider Line: [phone] SITE ID: [id number]
[2017-02-01] MEDS: AMOX/CLAV 875 MG/125 MG TABLET PO SCH ×2 (14:23→21:04)
[2017-02-02] MEDS: SODIUM CHLORIDE FLUSH 0.9% 10 ML SYRINGE IVP SCH (06:25)
[2017-02-02] MEDS: LEVOTHYROXINE 75 MCG TABLET PO SCH (06:25)
[2017-02-02 08:22] VITALS: BP 120/57
[2017-02-02] MEDS ORDERED: levoFLOXacin 250 MG TABLET PO SCH (09:00)
[2017-02-02] MEDS: lamoTRIgine 25 MG TABLET PO SCH (10:03)
[2017-02-02] MEDS: FAMOTIDINE 20 MG TABLET PO SCH (10:04)
--- NOTE | 2017-02-02 10:18 | Discharge Plan ---
Discharge Plan Disposition: Home, Self Care Condition: Stable Prescriptions: levoFLOXacin [Levaquin] 750 mg PO DAILY #10 tablet Levothyroxine [Synthroid] 75 mcg PO QDAC #30 tablet Diet: Regular Activity Restrictions: No Restrictions Shower Restrictions: No Driving Restrictions: No Instruction Topics: Urinary Tract Infecs Women, Pyelonephritis Dc, ED Kidney Infec Female Additional Instructions or Follow Up instructions: See your Primary Care Provider in 2 weeks for follow-up. Take the Levoquin antibiotic tablets til they are finished. Remember to stop taking Depakote. Remember that the Synthroid dose has been decreased. A new prescription was ordered for the lower dose for you. All other medications stay the same. No Smoking: If you smoke, Please STOP! Call for help. Follow-up with: Paulette Petersen PABetitoC [Primary Care Provider] - Padmini Hoffmann MD [Physician No Access] -
--- NOTE | 2017-02-24 22:17 | DISCHARGE SUMMARY ---
Physician: Jennifer Ash MD DATE OF ADMISSION: 01/30/2017 DATE OF DISCHARGE: 02/02/2017 HISTORY OF PRESENT ILLNESS: This is a 62-year-old white female with a history of bipolar disorder, hypothyroidism who presented with complaints of a rash, fever, and tachycardia. The patient was admitted for management of sepsis from a urinary tract infection as well as management of the rash, and found to have thrombocytopenia. HOSPITAL COURSE WITH DISCHARGE DIAGNOSES 1. Sepsis. The patient's fever and tachycardia improved with Tylenol. Her labs showed urinary tract infection with small leukocyte esterase positive, high white blood cells, and rare bacteria. The urine culture grew E coli and her blood cultures also became positive in 2 of 2 bottles with the same Escherichia coli. The patient had improvement of her symptoms with antibiotic management and IV hydration. 2. Thrombocytopenia. The patient's admission, platelet count was 98, which dropped to 82, but near discharge, was improving to 103. Review of her medications led to the suspicion that the new Depakote that had been started caused her Lamictal level to be elevated, which in turn causes significant bone marrow suppression and the thrombocytopenia. I spoke to her psychiatrist, Dr. Padmini Hoffmann, and reviewed her case and was advised to continue the Lamictal, but stop the Depakote, which was done. 3. Rash. This was felt to be related to recent sun exposure on a trip she had to [place]. This was also related to a side effect of a probably elevated Lamictal level caused by the addition of the recent Depakote. The rash was nearly completely resolved at the time of discharge. 4. Bipolar disorder. As stated above, I reached out to her psychiatrist, who advised the adjustment of medications. The patient has a stable mental status while here. 5. Hyperthyroidism. Because of the tachycardia, a TSH level was done that showed a depressed TSH of 0.16. For this, her thyroid medication dose was decreased and a new prescription was given at the time of discharge. DISCHARGE CONDITION: Stable. PHYSICAL EXAMINATION: At discharge VITAL SIGNS: Blood pressure 120/57, heart rate 80 in sinus rhythm. Room air saturation 94%, afebrile (defervesced from a temperature max of 38.2 during this admission). HEENT: Unremarkable with moist oral mucosa. NECK: Without JVD, or carotid bruits. CHEST: Clear. HEART: Sounds normal. ABDOMEN: Soft, nontender, normal bowel sounds. EXTREMITIES: No clubbing, cyanosis or edema. No visible rash. NEUROLOGIC: Intact. ALLERGIES: 1. ADHESIVE TAPE. 2. SULFA. DISCHARGE MEDICATIONS 1. New Levaquin 750 mg p.o. daily for 10 additional days. 2. New decreased dose of Synthroid from 100 mcg daily down to 75 mcg p.o. daily. And continuation of her other medications, including 1. Premarin cream. 2. Flonase nasal spray. 3. Hydroxyzine p.r.n. 4. Lamictal 75 mg p.o. daily. 5. Ambien at bedtime p.r.n. LABORATORY AND IMAGING: Reviewed and summarized above. CODE STATUS: FULL CODE. FOLLOWUP: With her PCP and her psychiatrist, Dr. Padmini Hoffmann. TOTAL TIME REQUIRED FOR COMPLETION OF THIS DISCHARGE: 50 minutes. TD: 02/24/2017 11:20 MTDD
== END 2017-02-02 12:59 | disposition home or self-care (01) | DRG 872 ==
LOC: ED 00:17 → OBS 03:18 → OBSVTOIN 12:36 → MS2 13:17
PROVIDERS: ADMIT Family Medicine; ATTEND Internal Medicine
DX: A41.51 Sepsis due to Escherichia coli [E. coli] (principal); N12 Tubulo-interstitial nephritis, not specified as acute or chronic; D69.59 Other secondary thrombocytopenia; L27.0 Generalized skin eruption due to drugs and medicaments taken internally; T42.6X5A Adverse effect of other antiepileptic and sedative-hypnotic drugs, initial encounter; E05.80 Other thyrotoxicosis without thyrotoxic crisis or storm; T38.1X5A Adverse effect of thyroid hormones and substitutes, initial encounter; E03.9 Hypothyroidism, unspecified; F31.9 Bipolar disorder, unspecified; Z85.3 Personal history of malignant neoplasm of breast
CPT/HCPCS: 36415; 71010; 71260; 74178; 80048; 80053; 80175; 81001; 81003; 83605; 83690; 83735; 84439; 84443; 84481; 85025; 85049; 85610; 85730; 86308; 86665; 87040; 87086; 87275; 87276; 96360; 96361; 96365; 99284; 99285

== ENCOUNTER 2017-02-20 09:40 | Outpatient (CLI) | payer BC | END 2017-02-20 09:41 | disposition home or self-care (01) | LOC: LAB.WCP 09:40 | PROVIDERS: ATTEND Family Medicine | DX: R32 Unspecified urinary incontinence (principal) | CPT/HCPCS: 87086 ==

== ENCOUNTER 2017-10-25 09:52 | Outpatient (CLI) | payer BC | END 2017-10-25 09:53 | disposition home or self-care (01) | LOC: DI 09:52 | PROVIDERS: ATTEND Physician Assistant Medical | DX: Z53.9 Procedure and treatment not carried out, unspecified reason (principal) | CPT/HCPCS: 77080 ==

== ENCOUNTER 2017-10-29 15:29 | Outpatient (CLI) | payer BC ==
--- NOTE | 2017-10-30 11:04 | Mammography Report ---
Reason: SCREENING MAMMO Procedure Date: 10/29/2017 Accession Number: [id number] / [id number] Procedure: MGN - Screening Mammo Dig Bilat CPT Code: FULL RESULT: EXAM: Screening Mammo Dig Bilat DATE: 10/29/2017 3:51 PM CLINICAL HISTORY: Personal history of right breast cancer status post lumpectomy and radiation therapy for screening. TECHNIQUE: Bilateral CC, exaggerated CC and MLO views were obtained. COMPARISON: 10/23/2016, 10/21/2015, 07/15/2015, 07/22/2014, 07/24/2013 and 07/22/2012 FINDINGS: There are scattered fibroglandular densities. No significant interval change. Post therapy change right breast as before. No suspicious masses, clustered microcalcifications, or regions of architectural distortion are identified. IMPRESSION: Benign findings RECOMMENDATION: Routine annual screening unless otherwise clinically indicated. BIRADS CATEGORY 2: Benign findings STANDARD QUALIFYING STATEMENTS: 1. This examination was reviewed with the aid of Computer-Aided Detection (CAD). 2. A negative or benign imaging report should not delay biopsy if clinically suspicious findings are present. Consider surgical consultation if warrented. More than 5% of cancers are not identified by imaging. 3. Dense breasts may obscure an underlying neoplasm.
== END 2017-10-29 15:30 | disposition home or self-care (01) ==
LOC: DI.N 15:29
PROVIDERS: ATTEND Radiology Diagnostic Radiology
DX: Z12.31 Encounter for screening mammogram for malignant neoplasm of breast (principal)
CPT/HCPCS: 77067

== ENCOUNTER 2018-11-13 08:32 | Outpatient (CLI) | payer BC ==
--- NOTE | 2018-11-13 10:44 | Mammography Report ---
Reason: SCREENING MAMMO Procedure Date: 11/13/2018 Accession Number: [id number] / [id number] Procedure: MGN - Screening Mammo Dig Bilat CPT Code: FULL RESULT: EXAM: Screening Mammo Dig Bilat DATE: 11/13/2018 9:14 AM CLINICAL HISTORY: Nulliparous patient with a personal history of right breast cancer status post lumpectomy and radiation therapy TECHNIQUE: (B) - Bilateral CC and MLO views were obtained. COMPARISON: 10/29/2017, 10/23/2016, 10/21/2015 and 07/15/2015 PARENCHYMAL PATTERN: (D) - The breasts demonstrate heterogeneously dense fibroglandular parenchyma bilaterally. FINDINGS: Postsurgical changes right breast stable. There are no new suspicious masses, calcifications, or areas of distortion. IMPRESSION: Benign findings. BI-RADS category 2. RECOMMENDATION: (ANNUAL) - Recommend routine annual screening mammography. BI-RADS CATEGORY: (2) - Benign Findings. STANDARD QUALIFYING STATEMENTS: 1. This examination was not reviewed with the aid of Computer-Aided Detection (CAD). 2. A negative or benign imaging report should not preclude biopsy if clinically suspicious findings are present. 3. Dense breasts may obscure an underlying neoplasm. 4. This examination was reviewed without the aid of 3D breast imaging (tomosynthesis).
== END 2018-11-13 08:33 | disposition home or self-care (01) ==
LOC: DI.N 08:32
DX: Z12.31 Encounter for screening mammogram for malignant neoplasm of breast (principal); Z85.3 Personal history of malignant neoplasm of breast
CPT/HCPCS: 77067

== ENCOUNTER 2019-04-02 10:10 | Outpatient (CLI) | payer BC, MEDICARE ==
[2019-04-02 13:00] LABS: CALCIUM 9.4 mg/dL (8.5-10.3); CREATININE 0.9 mg/dL (0.4-1.0)
== END 2019-04-02 23:59 | disposition home or self-care (01) ==
LOC: LAB.WCP 10:10
PROVIDERS: ATTEND Physician Assistant Medical
DX: R60.9 Edema, unspecified (principal)
CPT/HCPCS: 36415; 80048

== ENCOUNTER 2019-04-02 20:14 | Outpatient (CLI) | payer MEDICARE ==
--- NOTE | 2019-04-02 21:58 | Ultrasound Report ---
Reason: EDEMA Procedure Date: 04/02/2019 Accession Number: [id number] / [id number] Procedure: US - Duplex Ext Veins Left CPT Code: Final Report FULL RESULT: EXAM: LEFT LOWER EXTREMITY VENOUS ULTRASOUND EXAM DATE: 04/02/2019 09:47 PM. CLINICAL HISTORY: EDEMA. COMPARISON: None. TECHNIQUE: Real-time sonographic vascular imaging was performed by the boat rental clerk through the lower extremity utilizing both color-flow and Doppler spectral analysis. Multiple outside sales account representative static images were saved for review. FINDINGS: Common Femoral Vein (CFV): Normal. CFV-GSV Junction: Normal. Profunda Femoral Vein (PFV): Normal. Femoral Vein (FV) Prox: Normal. Femoral Vein (FV) Mid: Normal. Femoral Vein (FV) Dist: Normal. Popliteal Vein: Normal. Posterior Tibial Veins: Normal. Peroneal Veins: Normal. IMPRESSION: No evidence for deep venous thrombosis. [facility]
== END 2019-04-02 20:15 | disposition home or self-care (01) ==
LOC: DI 20:14
PROVIDERS: ATTEND Physician Assistant Medical
DX: R60.0 Localized edema (principal)

== ENCOUNTER 2019-12-03 10:21 | Outpatient (CLI) | payer MEDICARE ==
--- NOTE | 2019-12-04 16:46 | Mammography Report ---
BILATERAL DIGITAL SCREENING MAMMOGRAM 3D/2D: 12/03/2019 CLINICAL: Routine screening. Personal history of right breast cancer. Comparison is made to exams dated: 11/13/2018 mammogram, 10/29/2017 mammogram, 10/23/2016 mammogram, 09/26 ultrasound, 10/21/2015 ultrasound, and 10/21/2015 mammogram - [facility]. The tissue of both breasts is heterogeneously dense. This may lower the sensitivity of mammography. There are benign post operative findings in the right breast. No significant masses, calcifications, or other findings are seen in either breast. There has been no significant interval change. IMPRESSION: BENIGN There is no mammographic evidence of malignancy. A 1 year screening mammogram is recommended. This exam was interpreted at Station ID: [id number]. NOTE: For mammograms, a report in lay terms will be sent to the patient. Approximately 15% of breast malignancies will not be visualized mammographically. In the management of a palpable breast mass, a negative mammogram must not discourage biopsy of a clinically suspicious lesion. Electronically Signed By: Silvano brewster/fox:12/03/2019 12:24:07 ACR BI-RADS Category 2: Benign Finding(s) 3342F PARENCHYMAL PATTERN: (D) - The breast(s) demonstrate(s) heterogeneously dense fibroglandular radha white. BI-RADS CATEGORY: (2) - 2 RECOMMENDATION: (ANNUAL) - Recommend routine annual screening mammography. [id number] 1 year screening LATERALITY: (B)
== END 2019-12-03 10:22 | disposition home or self-care (01) ==
LOC: DI.N 10:21
DX: Z12.31 Encounter for screening mammogram for malignant neoplasm of breast (principal); Z85.3 Personal history of malignant neoplasm of breast
CPT/HCPCS: 77063; 77067

== ENCOUNTER 2020-12-08 08:48 | Outpatient (CLI) | payer MEDICARE ==
--- NOTE | 2020-12-09 09:27 | Mammography Report ---
BILATERAL DIGITAL SCREENING MAMMOGRAM 3D/2D: 12/08/2020 CLINICAL: Routine screening. Personal history of right breast cancer. Comparison is made to exams dated: 12/03/2019 mammogram, 11/13/2018 mammogram, 10/29/2017 mammogram, 09/26 mammogram, 10/21/2015 ultrasound, and 10/21/2015 ultrasound - [facility]. The tissue of both breasts is heterogeneously dense. This may lower the sensitivity of mammography. There are benign post operative findings in the right breast. No significant masses, calcifications, or other findings are seen in either breast. There has been no significant interval change. IMPRESSION: BENIGN There is no mammographic evidence of malignancy. A 1 year screening mammogram is recommended. This exam was interpreted at Station ID: [id number]. NOTE: For mammograms, a report in lay terms will be sent to the patient. Approximately 15% of breast malignancies will not be visualized mammographically. In the management of a palpable breast mass, a negative mammogram must not discourage biopsy of a clinically suspicious lesion. Electronically Signed By: Sudhir Carlisle M.D. ddp/penrad:12/08/2020 10:04:31 ACR BI-RADS Category 2: Benign Finding(s) 3342F PARENCHYMAL PATTERN: (D) - The breast(s) demonstrate(s) heterogeneously dense fibroglandular parmaryy ma. BI-RADS CATEGORY: (2) - 2 RECOMMENDATION: (ANNUAL) - Recommend routine annual screening mammography. [id number] 1 year screening LATERALITY: (B)
== END 2020-12-08 08:49 | disposition home or self-care (01) ==
LOC: DI.N 08:48
DX: Z12.31 Encounter for screening mammogram for malignant neoplasm of breast (principal); Z85.3 Personal history of malignant neoplasm of breast

== ENCOUNTER 2021-07-21 12:25 | Outpatient (CLI) | payer MEDICARE ==
--- NOTE | 2021-07-21 13:23 | Ultrasound Report ---
PROCEDURE: Duplex Ext Veins Right INDICATIONS: RIGHT LEG EDEMA TECHNIQUE: Real-time imaging, as well as color and pulse Doppler interrogation, were performed of the lower extr emity deep veins from the inguinal ligament to the popliteal fossa. COMPARISON: None. FINDINGS: The deep veins are normally compressible, and free of intraluminal thrombus. Color and pu lse Doppler demonstrate normal phasic intraluminal flow. There is normal augmentation response to di stal compression maneuver. IMPRESSION: No deep vein thrombosis of the right lower extremity. Reviewed by: Karen Mays MD on 07/21/2021 1:22 PM PDT Approved by: Karen Mays MD on 07/21/2021 1:22 PM PDT Station ID: [id number]
== END 2021-07-21 12:26 | disposition home or self-care (01) ==
LOC: DI 12:25
PROVIDERS: ATTEND Physician Assistant Medical
DX: R60.0 Localized edema (principal)

== ENCOUNTER 2021-12-11 13:12 | Outpatient (CLI) | payer MEDICARE ==
--- NOTE | 2021-12-12 10:32 | Mammography Report ---
BILATERAL DIGITAL SCREENING MAMMOGRAM 3D/2D: 12/11/2021 CLINICAL: Routine screening. Personal history of right breast cancer. Comparison is made to exams dated: 12/08/2020 mammogram, 12/03/2019 mammogram, 11/13/2018 mammogram, mammogram, 10/23/2016 mammogram, and 10/21/2015 ultrasound - [facility]. Both breasts are heterogeneously dense, which may obscure small masses (category c / 51-75% glandula r tissue). There are benign post operative findings in the right breast. No significant masses, calcifications, or other findings are seen in either breast. There has been no significant interval change. IMPRESSION: BENIGN There is no mammographic evidence of malignancy. A 1 year screening mammogram is recommended. This exam was interpreted at Station ID: [id number]. NOTE: For mammograms, a report in lay terms will be sent to the patient. Approximately 15% of breast malignancies will not be visualized mammographically. In the management of a palpable breast mass, a negative mammogram must not discourage biopsy of a clinically suspicious lesion. Electronically Signed By: Karen lucio/fox:12/11/2021 14:54:37 ACR BI-RADS Category 2: Benign Finding(s) 3342F PARENCHYMAL PATTERN: (D) - The breast(s) demonstrate(s) heterogeneously dense fibroglandular radha white. BI-RADS CATEGORY: (2) - 2 RECOMMENDATION: (ANNUAL) - Recommend routine annual screening mammography. [id number] 1 year screening LATERALITY: (B)
== END 2021-12-11 13:13 | disposition home or self-care (01) ==
LOC: DI.N 13:12
DX: Z12.31 Encounter for screening mammogram for malignant neoplasm of breast (principal); Z85.3 Personal history of malignant neoplasm of breast

== ENCOUNTER 2022-05-01 07:59 | Outpatient (CLI) | payer MEDICARE ==
[2022-05-01 11:53] LABS: BASOPHILS % (AUTO) 1.1 %; EOSINOPHILS # (AUTO) 0.2 10^3/uL (0.0-0.7); EOSINOPHILS % (AUTO) 4.6 %; HCT - HEMATOCRIT 42.6 % (37.0-47.0); HGB - HEMOGLOBIN 13.7 g/dL (12.0-16.0); LYMPHOCYTES # (AUTO) 1.1 10^3/uL (1.5-3.5); LYMPHOCYTES % (AUTO) 28.6 %; MEAN CORPUSCULAR HEMOGLOBIN 29.8 pg (27.0-31.0); MEAN CORPUSCULAR HGB CONC 32.2 g/dL (32.0-36.0); MEAN CORPUSCULAR VOLUME 92.8 fL (81.0-99.0); MEAN PLATELET VOLUME 9.6 fL (7.9-10.8); MONOCYTES # (AUTO) 0.2 10^3/uL (0.0-1.0); MONOCYTES % (AUTO) 4.9 %; NEUTROPHILS # (AUTO) 2.3 10^3/uL (1.5-6.6); NEUTROPHILS % (AUTO) 60.5 %; PLT - PLATELET COUNT 130 10^3/uL (130-450); RED BLOOD COUNT 4.59 10^6/uL (4.20-5.40); RED CELL DISTRIBUTION WIDTH 12.5 % (12.0-15.0); WHITE BLOOD COUNT 3.7 x10^3/uL (4.8-10.8)
[2022-05-01 12:10] LABS: ALBUMIN/GLOBULIN RATIO 1.5 (1.0-2.2); ALKALINE PHOSPHATASE 46 IU/L (42-121); ALT ALANINE AMINOTRANSFERASE 18 IU/L (10-60); AST ASPARTATE AMINOTRANSFERASE 19 IU/L (10-42); BILIRUBIN,TOTAL 0.6 mg/dL (0.2-1.0); BUN - BLOOD UREA NITROGEN 20 mg/dL (6-20); CALCIUM 9.6 mg/dL (8.5-10.3); CARBON DIOXIDE - CO2 26 mmol/L (21-32); CHLORIDE 107 mmol/L (101-111); CHOL/HDL RATIO 4.1 (<4.4); CHOLESTEROL 231 mg/dL; GFR - MDRD 55 (>89); GLUCOSE 98 mg/dL (70-100); HDL CHOLESTEROL 57 mg/dL; LDL CHOLESTEROL,CALCULATED 144 mg/dL; LDL/HDL RATIO 2.5 (<4.4); POTASSIUM 3.7 mmol/L (3.5-5.0); SODIUM 142 mmol/L (135-145); TOTAL PROTEIN 6.6 g/dL (6.7-8.2); TRIGLYCERIDES 150 mg/dL; VLDL CHOLESTEROL 30 mg/dL
[2022-05-01 12:11] LABS: ESTIMATED AVERAGE GLUCOSE 103 mg/dL (70-100); HEMOGLOBIN A1c% 5.2 % (4.27-6.07)
[2022-05-01 12:24] LABS: THYROID STIMULATING HORMONE 2.6 uIU/mL (0.34-5.60)
== END 2022-05-01 08:00 | disposition home or self-care (01) ==
LOC: LAB.N 07:59
PROVIDERS: ATTEND Family Medicine
DX: E78.5 Hyperlipidemia, unspecified (principal); F31.9 Bipolar disorder, unspecified; R73.01 Impaired fasting glucose; E03.9 Hypothyroidism, unspecified
CPT/HCPCS: 36415; 80053; 80061; 80178; 83036; 83721; 84443; 85025

== ENCOUNTER 2022-10-17 07:25 | Day surgery (SDC) | payer MEDICARE ==
[2022-10-17] MEDS ORDERED: LACTATED RINGERS 1,000 ML IV ONE (07:47)
--- NOTE | 2022-10-17 07:50 | ANESTHESIA ---
Pre-Anesthesia VS, & Labs - Diagnosis screening - Procedure colonoscopy Vital Signs: Temp Pulse Resp BP Pulse Ox O2 Flow Rate 36.0 C L 76 14 115/68 98 10/17/22 07:41 10/17/22 07:41 10/17/22 07:41 10/17/22 07:41 10/17/22 07:41 Height: 5 ft 5 in Weight (kg): 74 kg Body Mass Index: 27.1 BMI Classification: Overweight - NPO >8 hours - Is Patient ?: No - Lab Results Lab results reviewed: Yes Home Medications and Allergies Home Medications: Ambulatory Orders Atorvastatin [Lipitor] 20 mg PO DAILY 10/16/22 Diazepam [Valium] 2 mg PO DAILY 10/16/22 Furosemide [Lasix] 20 mg PO ONCE PRN MDD 1-2 10/16/22 [place] Carbonate [[place] Carbonate ER] 450 mg PO DAILY 10/16/22 Nitrofurantoin Macrocrystal [Macrodantin] 50 mg PO DAILY 10/16/22 Nitrofurantoin Macrocrystal [Macrodantin] 50 mg PO QID PRN 10/16/22 Pramipexole [Mirapex] 0.25 mg PO DAILY 10/16/22 lamoTRIgine [Lamictal] 150 mg PO DAILY 10/16/22 Fluticasone [Flonase] 1 spray TRAVIS DAILY PRN 01/30/17 Zolpidem Tartrate [Ambien] 5 - 10 mg PO QPM PRN 01/30/17 Atorvastatin [Lipitor] 20 mg PO DAILY 10/16/22 Diazepam [Valium] 2 mg PO DAILY 10/16/22 Furosemide [Lasix] 20 mg PO ONCE PRN MDD 1-2 10/16/22 [place] Carbonate [[place] Carbonate ER] 450 mg PO DAILY 10/16/22 Nitrofurantoin Macrocrystal [Macrodantin] 50 mg PO DAILY 10/16/22 Nitrofurantoin Macrocrystal [Macrodantin] 50 mg PO QID PRN 10/16/22 Pramipexole [Mirapex] 0.25 mg PO DAILY 10/16/22 lamoTRIgine [Lamictal] 150 mg PO DAILY 10/16/22 Allergies/Adverse Reactions: Allergies Allergy/AdvReac Type Severity Reaction Status Date / Time adhesive tape AdvReac Rash Verified 10/17/22 07:46 Sulfa (Sulfonamide AdvReac Anxiety Verified 10/17/22 07:46 Antibiotics) Anes History & Medical History - Anesthetic History Anesthesia Complications: reports: No previous complications Family history of Anesthesia Complications: Denies - Medical History Cardiovascular: reports: High cholesterol Pulmonary: reports: None Gastrointestinal: reports: GERD (diet related), Colon polyps Urinary: reports: Other Musculoskeletal: reports: None Endocrine/Autoimmune: reports: HyPOthyroidism Blood Disorders: reports: None Skin: reports: None Smoking Status: Never smoker - Surgical History General: reports: Colonoscopy, Other Eyes Ears Nose Throat (EENT): reports: Cataracts Gynecologic: reports: Hysterectomy Exam General: Alert, Oriented x3, Cooperative Dental: WNL Mouth Openin Fingerbreadth Neck Mobility: Normal Mallampati classification: I Thyromental Distance: 4-6 cm Respiratory: Lungs clear Cardiovascular: Regular rate Plan Anesthesia Type: General, MAC Consent for Procedure(s) Verified and Reviewed: Yes Code Status: Attempt Resuscitation ASA classification: 2-Mild systemic disease Is this case an emergency?: No
[2022-10-17] MEDS ORDERED: PROPOFOL 500 MG/50 ML 500 MG/50 ML VIAL ONE (08:43)
[2022-10-17] MEDS ORDERED: LACTATED RINGERS 200 ML IV ONE ×2 (09:26)
[2022-10-17 09:59] VITALS: BP 111/57; O2SAT 99
--- NOTE | 2022-10-17 12:56 | ANESTHESIA POST OP EVALUATION ---
Anesthesia Post Eval - Post Anesthesia Eval Vitals: Last Vital Signs Temp 36.0 C L 10/17/22 09:58 Pulse 71 10/17/22 09:58 Resp 16 10/17/22 09:58 BP 111/57 L 10/17/22 09:58 Pulse Ox 99 10/17/22 09:58 O2 Flow Rate CV Function Including HR & BP: Stable Pain Control: Satisfactory Nausea & Vomiting: Negative Mental Status: Baseline Respiratory Status: Airway Patent Hydration Status: Satisfactory Anesthesia Complications: None
== END 2022-10-17 07:26 | disposition home or self-care (01) ==
LOC: SDS 07:25
PROVIDERS: ATTEND Surgery
DX: Z12.11 Encounter for screening for malignant neoplasm of colon (principal); D12.2 Benign neoplasm of ascending colon; D12.0 Benign neoplasm of cecum; D12.8 Benign neoplasm of rectum; K64.8 Other hemorrhoids; K64.4 Residual hemorrhoidal skin tags
CPT/HCPCS: 45385; J7120

== ENCOUNTER 2023-01-14 11:23 | Outpatient (CLI) | payer MEDICARE ==
--- NOTE | 2023-01-16 15:36 | Mammography Report ---
BILATERAL DIGITAL SCREENING MAMMOGRAM 3D/2D: 01/14/2023 CLINICAL: Routine screening. Personal history of right breast cancer. Comparison is made to exams dated: 12/11/2021 mammogram, 12/08/2020 mammogram, 12/03/2019 mammogram, 11/13/2018 mammogram, 10/29/2017 mammogram, and 10/23/2016 mammogram - [facility]. There are scattered areas of fibroglandular density in both breasts (category b / 25%-50% glandular t issue). There are benign post operative findings in the right breast. No significant masses, calcifications, or other findings are seen in either breast. IMPRESSION: BENIGN There is no mammographic evidence of malignancy. A 1 year screening mammogram is recommended. This exam was interpreted at Station ID: [id number]. NOTE: For mammograms, a report in lay terms will be sent to the patient. Approximately 15% of breast malignancies will not be visualized mammographically. In the management of a palpable breast mass, a negative mammogram must not discourage biopsy of a clinically suspicious lesion. Electronically Signed By: Raquel Mendoza M.D., PH.D eb/penrad:01/15/2023 23:17:30 letter sent: No_Letter ACR BI-RADS Category 2: Benign Finding(s) 3342F PARENCHYMAL PATTERN: (A) - The breast(s) demonstrate(s) scattered fibroglandular densities. BI-RADS CATEGORY: (2) - 2 Mammogram 20240115 1 year screening LATERALITY: (B)
== END 2023-01-14 11:24 | disposition home or self-care (01) ==
LOC: DI.N 11:23
DX: Z12.31 Encounter for screening mammogram for malignant neoplasm of breast (principal); R92.323 Mammographic fibroglandular density, bilateral breasts

== ENCOUNTER 2023-06-19 11:06 | Outpatient (CLI) | payer MEDICARE ==
--- NOTE | 2023-06-19 13:51 | XRAY Report ---
PROCEDURE: Foot 3+V RT (Weight Bearing) INDICATIONS: RIGHT FOOT PAIN TECHNIQUE: 3 views of the foot were acquired. COMPARISON: No relevant comparisons at time of dictation. FINDINGS: Bones: No fractures or dislocations. No suspicious bony lesions. Marked hallux valgus, with bony b union formation of the first metatarsal head. Soft tissues: No tibiotalar joint effusion. Achilles tendon appears normal. IMPRESSION: No acute bony abnormality. Marked hallux valgus, with bony bunion formation of the metatarsal head. Reviewed by: Thomas Knowles MD on 06/19/2023 1:49 PM PDT Approved by: Thomas Knowles MD on 06/19/2023 1:49 PM PDT Station ID: [id number]
== END 2023-06-19 11:07 | disposition home or self-care (01) ==
LOC: DI 11:06
PROVIDERS: ATTEND Podiatrist
DX: M20.11 Hallux valgus (acquired), right foot (principal); M21.611 Bunion of right foot